=== PATIENT | male | born 1990 | race Caucasian/White ===

== ENCOUNTER 2023-07-02 19:29 | Observation (INO) ==
[2023-07-02] MEDS ORDERED: 0.9 % SODIUM CHLORIDE 1,000 ML IV ONE (19:58)
[2023-07-02 20:23] LABS: Basophils # (Auto) 0 K/mcL (0.00-0.30); Basophils % (Auto) 0 % (0.0-2.0); Eosinophils # (Auto) 0.02 K/mcL (0.00-0.70); Eosinophils % (Auto) 0.1 % (0.0-7.0); Hematocrit 40.5 % (40.1-51.0); Hemoglobin 14.3 g/dL (13.7-17.5); Lymphocytes # (Auto) 1.06 K/mcL (1.50-4.80); Lymphocytes % (Auto) 5.8 % (15.5-49.0); Mean Cell Volume 84.4 fL (80.0-100.0); Mean Corpuscular HGB Conc 35.3 g/dL (31.0-36.0); Mean Platelet Volume 9.2 fL (8.8-12.5); Monocytes # (Auto) 1.26 K/mcL (0.10-0.90); Monocytes % (Auto) 6.9 % (1.0-12.0); Platelet Count 300 K/mcL (140-440); Red Cell Distribution Width 11.8 % (11.5-14.5); WBC 18.4 K/mcL (4.5-11.0)
[2023-07-02 20:40] LABS: ALT/SGPT 32 U/L (<40); AST/SGOT 28 U/L (<40); Albumin 4.4 gm/dL (3.2-5.2); Albumin/Globulin Ratio 1.4 (1.0-2.3); Alkaline Phosphatase 66 U/L (39-117); Amylase 44 U/L (28-100); Bilirubin,Total 0.9 mg/dL (0.1-1.0); Blood Urea Nitrogen 11 mg/dL (6-20); Calcium 9.4 mg/dL (8.6-10.4); Carbon Dioxide 24 mmol/L (22-30); Chloride 97 mmol/L (96-108); Globulin 3.1 gm/dL (2.2-3.7); Glomerular Filtration Rate 97; Glucose 142 mg/dL (70-105)
[2023-07-02] MEDS ORDERED: PIPERACILLIN SODIUM/TAZOBACTAM 3.375 GM in DEXTROSE 5% IN WATER 50 ML IV ONE (21:21)
[2023-07-02] MEDS ORDERED: PROMETHAZINE 25 MG/ML VIAL IV PRN (21:28)
[2023-07-02] MEDS ORDERED: ONDANSETRON 4 MG/2 ML VIAL IV PRN (21:28)
[2023-07-02] MEDS ORDERED: morphine 4 MG/ML VIAL IV ONE (21:29)
[2023-07-02 22:05] LABS: Prothrombin Time 14.2 sec (11.9-14.5)
[2023-07-02] MEDS: HYDROmorphone 1 MG/ML SYRINGE IV PRN (23:03)
[2023-07-02] MEDS: PIPERACILLIN SODIUM/TAZOBACTAM 3.375 GM in DEXTROSE 5% IN WATER 100 ML IV SCH (23:04)
[2023-07-03] MEDS: 0.9 % SODIUM CHLORIDE 1,000 ML IV SCH ×5 (00:22→22:09)
[2023-07-03] MEDS: HYDROmorphone 1 MG/ML SYRINGE IV PRN ×6 (03:32→22:08)
[2023-07-03] MEDS: ACETAMINOPHEN 1,000 MG/100 ML BAG IV PRN ×3 (03:36→22:08)
[2023-07-03] MEDS: PIPERACILLIN SODIUM/TAZOBACTAM 3.375 GM in DEXTROSE 5% IN WATER 100 ML IV SCH ×3 (05:13→22:08)
[2023-07-03 06:20] LABS: Basophils # (Auto) 0.01 K/mcL (0.00-0.30); Basophils % (Auto) 0.1 % (0.0-2.0); Eosinophils # (Auto) 0 K/mcL (0.00-0.70); Eosinophils % (Auto) 0 % (0.0-7.0); Hematocrit 39.7 % (40.1-51.0); Hemoglobin 13.5 g/dL (13.7-17.5); Lymphocytes # (Auto) 0.74 K/mcL (1.50-4.80); Mean Cell Volume 86.7 fL (80.0-100.0); Mean Platelet Volume 9.6 fL (8.8-12.5); Monocytes # (Auto) 1.12 K/mcL (0.10-0.90); Neutrophils % (Auto) 88.9 % (38.0-78.0); Platelet Count 267 K/mcL (140-440); RBC 4.58 M/mcL (4.63-6.08); WBC 18.7 K/mcL (4.5-11.0)
[2023-07-03] MEDS: PANTOPRAZOLE 40 MG VIAL IV SCH ×2 (07:11→16:23)
[2023-07-03 08:43] LABS: ALT/SGPT 22 U/L (<40); AST/SGOT 19 U/L (<40); Albumin 3.9 gm/dL (3.2-5.2); Albumin/Globulin Ratio 1.4 (1.0-2.3); Alkaline Phosphatase 63 U/L (39-117); Bilirubin,Direct 0.3 mg/dL (<0.3); Bilirubin,Total 1.1 mg/dL (0.1-1.0); Blood Urea Nitrogen 11 mg/dL (6-20); Calcium 8.3 mg/dL (8.6-10.4); Carbon Dioxide 24 mmol/L (22-30); Chloride 101 mmol/L (96-108); Globulin 2.8 gm/dL (2.2-3.7); Glomerular Filtration Rate 86; Glucose 116 mg/dL (70-105); Lactate Dehydrogenase 194 U/L (135-225); Phosphorous 3.1 mg/dL (2.5-4.5); Triglycerides 57 mg/dL (<150); Uric Acid 3.4 mg/dL (2.5-8.0)
[2023-07-03] MEDS ORDERED: ROCURONIUM 10 MG/ML ML IV ONE (13:30)
[2023-07-03] MEDS ORDERED: PROPOFOL 200 MG/20 ML VIAL IV ONE (13:30)
[2023-07-03] MEDS ORDERED: ONDANSETRON 4 MG/2 ML VIAL ONE (13:30)
[2023-07-03] MEDS ORDERED: fentaNYL 100 MCG/2 ML VIAL ONE (13:31)
[2023-07-03] MEDS ORDERED: ONDANSETRON 4 MG/2 ML VIAL IV PRN (14:14)
[2023-07-03] MEDS ORDERED: fentaNYL 100 MCG/2 ML VIAL IV PRN (14:14)
[2023-07-03] MEDS ORDERED: HYDROmorphone 0.5 MG/0.5 ML SYRINGE IV PRN (14:14)
[2023-07-03] MEDS ORDERED: IPRATROPIUM/ALBUTEROL 3 ML AMPUL.NEB NEB PRN (14:14)
[2023-07-03] MEDS ORDERED: NALOXONE HCL 0.4 MG/ML VIAL IV PRN (14:14)
[2023-07-03] MEDS ORDERED: FLUMAZENIL 0.1 MG/ML ML IV PRN (14:14)
[2023-07-03] MEDS ORDERED: LACTATED RINGERS 1,000 ML IV SCH (14:15)
[2023-07-03] MEDS ORDERED: MIDAZOLAM 2 MG/2 ML VIAL ONE (14:49)
[2023-07-03] MEDS ORDERED: SUGAMMADEX SODIUM 200 MG/2 ML VIAL IV ONE (14:54)
[2023-07-04] MEDS: HYDROmorphone 1 MG/ML SYRINGE IV PRN ×4 (02:10→16:39)
[2023-07-04] MEDS: ACETAMINOPHEN 1,000 MG/100 ML BAG IV PRN (04:06)
[2023-07-04] MEDS: PIPERACILLIN SODIUM/TAZOBACTAM 3.375 GM in DEXTROSE 5% IN WATER 100 ML IV SCH ×2 (05:58→13:01)
[2023-07-04] MEDS: 0.9 % SODIUM CHLORIDE 1,000 ML IV SCH ×2 (06:04→13:01)
[2023-07-04 06:44] LABS: Basophils # (Auto) 0.02 K/mcL (0.00-0.30); Basophils % (Auto) 0.2 % (0.0-2.0); Eosinophils # (Auto) 0.03 K/mcL (0.00-0.70); Eosinophils % (Auto) 0.2 % (0.0-7.0); Hematocrit 35.7 % (40.1-51.0); Hemoglobin 12.1 g/dL (13.7-17.5); Mean Cell Volume 87.9 fL (80.0-100.0); Mean Corpuscular HGB Conc 33.9 g/dL (31.0-36.0); Mean Platelet Volume 9.6 fL (8.8-12.5); Monocytes # (Auto) 0.75 K/mcL (0.10-0.90); Monocytes % (Auto) 5.8 % (1.0-12.0); Neutrophils % (Auto) 86.6 % (38.0-78.0); Platelet Count 224 K/mcL (140-440); RBC 4.06 M/mcL (4.63-6.08); Red Cell Distribution Width 11.8 % (11.5-14.5); WBC 12.9 K/mcL (4.5-11.0)
[2023-07-04 07:18] LABS: ALT/SGPT 21 U/L (<40); AST/SGOT 19 U/L (<40); Albumin 3.4 gm/dL (3.2-5.2); Alkaline Phosphatase 74 U/L (39-117); Bilirubin,Direct 0.5 mg/dL (<0.3); Bilirubin,Total 1.1 mg/dL (0.1-1.0); Blood Urea Nitrogen 9 mg/dL (6-20); Calcium 8.5 mg/dL (8.6-10.4); Carbon Dioxide 22 mmol/L (22-30); Chloride 102 mmol/L (96-108); Globulin 3.4 gm/dL (2.2-3.7); Glomerular Filtration Rate 115; Glucose 90 mg/dL (70-105); Lactate Dehydrogenase 181 U/L (135-225); Phosphorous 1.9 mg/dL (2.5-4.5); Triglycerides 78 mg/dL (<150); Uric Acid 1.9 mg/dL (2.5-8.0)
[2023-07-04] MEDS: PANTOPRAZOLE 40 MG VIAL IV SCH ×2 (07:24→16:40)
[2023-07-04] MEDS ORDERED: ROCURONIUM 10 MG/ML ML IV ONE (12:21)
== END 2023-07-04 17:30 | disposition home or self-care (01) ==
LOC: ED 19:29 → MEDSUR 19:29
PROVIDERS: ADMIT Family Medicine Adult Medicine; ATTEND Family Medicine Adult Medicine